=== PATIENT | male | born 1935 | race Hispanic/Latino ===

== ENCOUNTER → 2019-07-10 | Outpatient (CLI) | payer OTHER | END | disposition home or self-care (01) | LOC: RAH 07:33 | PROVIDERS: ATTEND Internal Medicine Gastroenterology | DX: K76.0 Fatty (change of) liver, not elsewhere classified (principal); N28.1 Cyst of kidney, acquired | CPT/HCPCS: 76700 ==

== ENCOUNTER 2019-07-20 19:19 | Inpatient (IN) | payer OTHER ==
[~2019-07-20] VITALS: Ht 170.2 cm; Wt 82.9 kg
[2019-07-20 20:05] LABS: BASOPHILS % (AUTO) 0.2 % (0.0-5.0); EOSINOPHILS % (AUTO) 0.4 % (0.0-8.0); MEAN CORPUSCULAR HEMOGLOBIN 43.2 pg (27.0-33.0); MEAN CORPUSCULAR HGB CONC 36.3 g/dL (32.0-36.0); MEAN CORPUSCULAR VOLUME 118.9 fL (79-99); MONOCYTES % (AUTO) 4.8 % (3.0-13.0); NEUTROPHILS % (AUTO) 79.4 % (40.0-77.0); NUCLEATED RED BLOOD CELLS 0.5 % (0.0-0.19); PLATELET COUNT (AUTO) 201 K/uL (130-400); RED BLOOD CELL COUNT(AUTO) 2.27 MIL/uL (4.50-6.20); RED CELL DISTRIBUTION WIDTH 14.6 % (11.0-15.5); WHITE BLOOD COUNT (AUTO) 5.6 K/uL (4.8-10.8)
[2019-07-20 20:21] LABS: CARBON DIOXIDE 28 mmol/L (21-32); CHLORIDE 101 mmol/L (101-111); CREATININE 1.1 mg/dL (0.5-1.5); GLOMERULAR FILTR. RATE CALC 68 mL/min (>60); GLUCOSE,RANDOM 132 mg/dL (70-105); POTASSIUM 3.4 mmol/L (3.5-5.1); SODIUM SERUM 139 mmol/L (136-145); UREA NITROGEN, BLOOD 21 mg/dL (7-18)
[2019-07-20 20:26] LABS: INR 1.07 (0.85-1.15); PARTIAL THROMBOPLASTIN TIME 24.5 SEC (26.3-35.5); PROTHROMBIN TIME 11.5 SEC (9.6-11.6)
[2019-07-20 20:30] LABS: ALANINE AMINOTRANSFERASE 12 U/L (12-78); ALBUMIN 3.6 g/dL (3.5-5.0); ASPARTATE AMINOTRANSFERASE 20 U/L (10-37); BILIRUBIN,TOTAL 4.3 mg/dL (0.2-1.0); CREATINE KINASE, TOTAL 33 U/L (21-232); TOTAL PROTEIN, SERUM 6.5 g/dL (6.0-8.3)
[2019-07-20 20:32] LABS: B-TYPE NATRIURETIC PEPTIDE 36 pg/mL (0-100)
[2019-07-20 20:49] LABS: LIPASE < 50 U/L (114-286)
[2019-07-20] MEDS ORDERED: ACETAMINOPHEN 325 MG TAB PO PRN ×2 (22:45)
[2019-07-20 23:09] VITALS: BP 104/74
[2019-07-20] MEDS ORDERED: LACTATED RINGERS 1000ML 1,000 ML IV ONE (23:14)
[2019-07-20] MEDS: LACTATED RINGERS 1000ML 1,000 ML IV SCH (23:23)
[2019-07-20] MEDS: POTASSIUM CHLORIDE 20 MEQ ERTAB PO PRN (23:40)
[2019-07-21] VITALS (7 sets, daily range): BP systolic 114–149; BP diastolic 55–85
[2019-07-21] MEDS: POTASSIUM CHLORIDE 20 MEQ ERTAB PO PRN (02:47)
[2019-07-21 03:02] LABS: APPEARANCE,URINE Clear (CLEAR); BILIRUBIN,URINE Negative (NEGATIVE); GLUCOSE, URINE (UA) Negative (NEGATIVE); KETONES,URINE 15 mg/dL (NEGATIVE); LEUKOCYTE ESTERASE ,URINE Trace (NEGATIVE); NITRATE,URINE Negative (NEGATIVE); OCCULT BLOOD,URINE Negative (NEGATIVE); PROTEIN,URINE Negative (NEGATIVE)
[2019-07-21 03:41] LABS: COLOR,URINE YELLOW (YELLOW)
[2019-07-21 04:16] LABS: BACTERIA,URINE Rare /HPF (None Seen); MUCUS,URINE Few LPF (None Seen); RBC,URINE None Seen /HPF (0-1)
[2019-07-21 05:21] LABS: BASOPHILS % (AUTO) 0.2 % (0.0-5.0); EOSINOPHILS % (AUTO) 0.8 % (0.0-8.0); LYMPHOCYTES % (AUTO) 37.7 % (21.0-51.0); MEAN CORPUSCULAR HGB CONC 36.5 g/dL (32.0-36.0); MEAN CORPUSCULAR VOLUME 120.4 fL (79-99); MONOCYTES % (AUTO) 4.8 % (3.0-13.0); NEUTROPHILS % (AUTO) 56.5 % (40.0-77.0); PLATELET COUNT (AUTO) 163 K/uL (130-400); RED BLOOD CELL COUNT(AUTO) 1.91 MIL/uL (4.50-6.20); RED CELL DISTRIBUTION WIDTH 14.5 % (11.0-15.5)
[2019-07-21 05:36] LABS: ALANINE AMINOTRANSFERASE 10 U/L (12-78); ALBUMIN 3.1 g/dL (3.5-5.0); ASPARTATE AMINOTRANSFERASE 16 U/L (10-37); BILIRUBIN,DIRECT 0.5 mg/dL (0.0-0.3); BILIRUBIN,TOTAL 3.6 mg/dL (0.2-1.0); CARBON DIOXIDE 31 mmol/L (21-32); CHLORIDE 105 mmol/L (101-111); CHOLESTEROL 109 mg/dL (<200); CREATININE 0.7 mg/dL (0.5-1.5); GLOMERULAR FILTR. RATE CALC 115 mL/min (>60); GLUCOSE,RANDOM 101 mg/dL (70-105); HDL CHOLESTEROL 41 mg/dL (29-71); LDL DIRECT 69 mg/dL (0-99); POTASSIUM 3.9 mmol/L (3.5-5.1); SODIUM SERUM 140 mmol/L (136-145); TOTAL PROTEIN, SERUM 5.8 g/dL (6.0-8.3); TRIGLYCERIDES 60 mg/dL (30-200); UREA NITROGEN, BLOOD 18 mg/dL (7-18)
[2019-07-21] MEDS: FAMOTIDINE/PF 20 MG/2 ML VIAL IV SCH ×2 (09:30→20:40)
[2019-07-21] MEDS: PNEUMOCOCCAL VACCINE POLYVALENT 0.5 ML/VIAL [PPV] IM SCH (09:49)
[2019-07-21] MEDS: LACTATED RINGERS 1000ML 1,000 ML IV SCH (12:41)
[2019-07-21] MEDS ORDERED: ONDANSETRON HCL 4 MG/2 ML VIAL ONE (14:19)
[2019-07-21] MEDS ORDERED: ONDANSETRON HCL 4 MG/2 ML VIAL IVP PRN (14:30)
--- NOTE | 2019-07-21 16:41 | NUR ---
INITIAL: Met w pt this afternoon to discuss dcp. Pt mentions that he lives w dtr Daniella. HE is currently complaining of nausea and requesting that CM speak w dtr Daniella. Call placed to Daniella to discuss dcp. Per Daniella, prior to admission pt was living w her. He uses crutches to ambulation but has a rollator and standard walker avail if needed Pt requires assistance w ADLs and has grab bars set up in BR. Per Daniella dcp is for pt to return home. CM to continue to follow and wait for Md recommendations. Addendum: 07/21/19 at 1644 by CHUY DOSHI Amended: Links added.
[2019-07-21] MEDS ORDERED: COMPOUND IV MISC 1 EACH IVSOLN MISC PRN (18:00)
[2019-07-21] MEDS ORDERED: GADODIAMIDE 10 MMOL/20 ML VIAL IV ONE (19:01)
[2019-07-21] MEDS: LEVETIRACETAM 500 MG in SODIUM CHLORIDE 0.9% 100 ML IV SCH (20:40)
--- NOTE | 2019-07-21 21:30 | NUR ---
MRI RADIOLOGY TO RADIOLOGY VIA BED FOR MRI HEAD ORDERED
--- NOTE | 2019-07-21 21:45 | NUR ---
MRI CX UNABLE TO PERFORM MRI HEAD PER CUSTOMS EXAMINER UNABLE TO PERFORM MRI OF HEAD BECAUSE PATIENT HAS SMALL METAL IN LEFT EYE FROM WELDING INJURY YEARS AGO
--- NOTE | 2019-07-21 22:52 | NUR ---
MRI HOSPITALIST ELECTRICIAN CHIEF JANEL OLIVER INFORMED UNABLE TO PERFORM MRI HEAD , SECONDARY TO METAL OBJECT IN THE LEFT EYE
[2019-07-22 04:00] VITALS: BP 117/66
[2019-07-22] MEDS: LACTATED RINGERS 1000ML 1,000 ML IV SCH ×2 (04:19→14:45)
[2019-07-22 05:19] LABS: MEAN CORPUSCULAR HEMOGLOBIN 42.3 pg (27.0-33.0); MEAN CORPUSCULAR HGB CONC 35.7 g/dL (32.0-36.0); MEAN CORPUSCULAR VOLUME 118.6 fL (79-99); PLATELET COUNT (AUTO) 151 K/uL (130-400); RED BLOOD CELL COUNT(AUTO) 1.94 MIL/uL (4.50-6.20); RED CELL DISTRIBUTION WIDTH 14.6 % (11.0-15.5); WHITE BLOOD COUNT (AUTO) 4.3 K/uL (4.8-10.8)
[2019-07-22 05:31] LABS: CREATININE 0.7 mg/dL (0.5-1.5); POTASSIUM 3.5 mmol/L (3.5-5.1)
[2019-07-22 05:44] LABS: LYMPHOCYTES % (MANUAL) 32 % (22-44); MAN.DIFF COMMENT-IMPRESSION MANUAL DIFFERENTIAL; MONOCYTES % (MANUAL) 4 % (2-9); PLATELET MORPHOLOGY COMMENT ADEQUATE; SEGMENTED NEUTROPHILS % 64 % (40-70)
[2019-07-22] MEDS: PNEUMOCOCCAL VACCINE POLYVALENT 0.5 ML/VIAL [PPV] IM SCH (08:00)
[2019-07-22] MEDS: LEVETIRACETAM 500 MG in SODIUM CHLORIDE 0.9% 100 ML IV SCH ×2 (08:52→19:35)
[2019-07-22] MEDS: FAMOTIDINE/PF 20 MG/2 ML VIAL IV SCH ×2 (08:52→19:35)
[2019-07-22 11:19] VITALS: BP 120/65
[2019-07-22] MEDS: LACTULOSE 20 GM/30 ML UDCUP PO SCH ×3 (11:25→16:45)
[2019-07-22] MEDS ORDERED: MAGNESIUM CITRATE 296 ML SOLUTION PO SCH (15:30)
[2019-07-22] MEDS ORDERED: PEG 3350/NA SULF,BICARB,CL/KCL 4000 ML SOLN PO SCH (16:30)
--- NOTE | 2019-07-22 16:30 | NUR ---
STARTED GOLYTELY. ENCOURAGED PATIENT TO KEEP DRINKING SMALL SIPS EVERY 10 MINUTES OR SO. PATIENT VERBALIZED UNDERSTANDING.
[2019-07-22 16:36] VITALS: BP 114/63
[2019-07-22 19:35] VITALS: BP 127/59
--- NOTE | 2019-07-22 21:00 | NUR ---
enema TAB WATER ENEMA GIVEN AND TOLERATED WELL.
[2019-07-22 23:46] VITALS: BP 124/54
[2019-07-23] VITALS (19 sets, daily range): BP systolic 99–146; BP diastolic 48–79
[2019-07-23] MEDS: LACTATED RINGERS 1000ML 1,000 ML IV SCH ×2 (03:42→19:51)
--- NOTE | 2019-07-23 05:00 | NUR ---
ENEMA TAB WATER ENEMA GIVEN AND TOLERATED WELL. PATIENT IS CLEAN .
[2019-07-23 05:20] LABS: BASOPHILS % (AUTO) 0.5 % (0.0-5.0); EOSINOPHILS % (AUTO) 3.2 % (0.0-8.0); HEMATOCRIT 24.1 % (42-54); LYMPHOCYTES % (AUTO) 37.4 % (21.0-51.0); MEAN CORPUSCULAR HEMOGLOBIN 42.9 pg (27.0-33.0); MEAN CORPUSCULAR HGB CONC 35.3 g/dL (32.0-36.0); MEAN CORPUSCULAR VOLUME 121.7 fL (79-99); MONOCYTES % (AUTO) 5.4 % (3.0-13.0); NEUTROPHILS % (AUTO) 53.3 % (40.0-77.0); PLATELET COUNT (AUTO) 150 K/uL (130-400); RED BLOOD CELL COUNT(AUTO) 1.98 MIL/uL (4.50-6.20); RED CELL DISTRIBUTION WIDTH 14.5 % (11.0-15.5); WHITE BLOOD COUNT (AUTO) 4.1 K/uL (4.8-10.8)
[2019-07-23 05:34] LABS: % IRON SATURATION 81.5 % (30-44); INR 1.06 (0.85-1.15); PARTIAL THROMBOPLASTIN TIME 27.9 SEC (26.3-35.5); PROTHROMBIN TIME 11.4 SEC (9.6-11.6)
[2019-07-23 05:35] LABS: CREATININE 0.7 mg/dL (0.5-1.5)
[2019-07-23] MEDS: POTASSIUM CHLORIDE 20MEQ/100ML 100 ML IV PRN ×2 (05:52→10:58)
[2019-07-23] MEDS: LACTULOSE 20 GM/30 ML UDCUP PO SCH ×3 (07:45)
[2019-07-23] MEDS: PNEUMOCOCCAL VACCINE POLYVALENT 0.5 ML/VIAL [PPV] IM SCH (07:46)
[2019-07-23] MEDS: FAMOTIDINE/PF 20 MG/2 ML VIAL IV SCH ×2 (10:57→19:50)
[2019-07-23] MEDS: CYANOCOBALAMIN (VITAMIN B-12) 1000 MCG/ML 1ML VIAL IM SCH (10:57)
[2019-07-23] MEDS: LEVETIRACETAM 500 MG in SODIUM CHLORIDE 0.9% 100 ML IV SCH ×2 (10:57→19:50)
[2019-07-23] MEDS: LIDOCAINE HCL-MPF 1% 2ML VIAL IV PRN (11:11)
[2019-07-23] MEDS ORDERED: IOHEXOL-350 50ML VIAL IV ONE (12:19)
[2019-07-23] MEDS ORDERED: PROPOFOL 10 MG/ML 20ML VIAL IV ONE (13:19)
[2019-07-23] MEDS ORDERED: EPHEDRINE SULFATE 50 MG/ML AMPULE ONE (13:41)
--- NOTE | 2019-07-23 14:40 | NUR ---
RECEIVED PT BACK FROM COLONOSCOPY, NO C/O PAIN, [id number]
--- NOTE | 2019-07-23 15:05 | NUR ---
I HAVE SENT DR JACKSON THE RESULTS OF CT OF HEAD AND NECK, --NO ACUTE CHANGES---. SCHEDULING EGD FOR TOMORROW AM.
--- NOTE | 2019-07-23 15:56 | NUR ---
CHART REVIEWED, DISCUSSION WITH TIM, DAUGHTER. WANTED TO KNOW IF STUDIES WERE GOING TO BE DONE. ADVISED THIS CM THAT THE PATIENT HAS HAD MRIS DONE BEFORE. CM STATES THAT IMAGING WAS GOING TO BE DONE BEFORE EGD. ADVISED RN THAT THE MD NOTE IN THE CHART SAYING THE MRI COULD NOT BE DONE WAS INCORRECT- FAMILY STATES PATIENT HAD HAD MRI DONE BEFORE. RN STATES PATIENT ALREADY HAD CT SCAN THIS AM, UNLIKELY TO NEED MRI NOW. EGD STILL PENDING Addendum: 07/23/19 at 1601 by LEVI KAUFMAN RN CM Amended: Links added.
[2019-07-23] MEDS: MAGNESIUM 2GM PREMIX 50ML 50 ML IV PRN (17:06)
[2019-07-23 19:40] LABS: MAGNESIUM 2.3 mg/dL (1.80-2.40); POTASSIUM 3.2 mmol/L (3.5-5.1)
[2019-07-23] MEDS: HYDROCORTISONE 25 MG SUPPOSITORY PR SCH (19:50)
[2019-07-23] MEDS: POTASSIUM CHLORIDE 10% ELIXIR 20 MEQ/15 ML UDCUP PO PRN ×2 (21:13→23:31)
[2019-07-24] VITALS (23 sets, daily range): BP systolic 94–147; BP diastolic 61–92
[2019-07-24 05:08] LABS: BASOPHILS % (AUTO) 0.2 % (0.0-5.0); EOSINOPHILS % (AUTO) 2.1 % (0.0-8.0); HEMATOCRIT 22.1 % (42-54); LYMPHOCYTES % (AUTO) 26.6 % (21.0-51.0); MEAN CORPUSCULAR HEMOGLOBIN 43.2 pg (27.0-33.0); MEAN CORPUSCULAR HGB CONC 35.7 g/dL (32.0-36.0); MEAN CORPUSCULAR VOLUME 120.8 fL (79-99); MONOCYTES % (AUTO) 5.2 % (3.0-13.0); NEUTROPHILS % (AUTO) 65.7 % (40.0-77.0); PLATELET COUNT (AUTO) 141 K/uL (130-400); RED BLOOD CELL COUNT(AUTO) 1.83 MIL/uL (4.50-6.20); RED CELL DISTRIBUTION WIDTH 14.4 % (11.0-15.5); WHITE BLOOD COUNT (AUTO) 4.7 K/uL (4.8-10.8)
[2019-07-24 05:19] LABS: CREATININE 0.6 mg/dL (0.5-1.5); POTASSIUM 3.3 mmol/L (3.5-5.1)
[2019-07-24] MEDS: POTASSIUM CHLORIDE 20MEQ/100ML 100 ML IV PRN ×2 (06:16→10:24)
[2019-07-24] MEDS: LACTATED RINGERS 1000ML 1,000 ML IV SCH ×2 (06:28→20:54)
[2019-07-24] MEDS: MULTIVITAMIN TABLET PO SCH (09:00)
[2019-07-24] MEDS: FAMOTIDINE/PF 20 MG/2 ML VIAL IV SCH ×2 (09:03→20:53)
[2019-07-24] MEDS: HYDROCORTISONE 25 MG SUPPOSITORY PR SCH ×2 (09:03→20:53)
[2019-07-24] MEDS: LEVETIRACETAM 500 MG in SODIUM CHLORIDE 0.9% 100 ML IV SCH ×2 (09:08→20:53)
[2019-07-24] MEDS: CYANOCOBALAMIN (VITAMIN B-12) 1000 MCG/ML 1ML VIAL IM SCH (10:24)
[2019-07-24] MEDS: LIDOCAINE HCL-MPF 1% 2ML VIAL IV PRN (10:29)
[2019-07-24] MEDS ORDERED: PROPOFOL 10 MG/ML 20ML VIAL IV ONE ×2 (13:28)
[2019-07-25] VITALS (20 sets, daily range): BP systolic 109–150; BP diastolic 57–89
[2019-07-25 05:02] LABS: BASOPHILS % (AUTO) 0.5 % (0.0-5.0); EOSINOPHILS % (AUTO) 5.6 % (0.0-8.0); HEMATOCRIT 22.5 % (42-54); LYMPHOCYTES % (AUTO) 40.7 % (21.0-51.0); MEAN CORPUSCULAR HEMOGLOBIN 42.7 pg (27.0-33.0); MEAN CORPUSCULAR HGB CONC 35.1 g/dL (32.0-36.0); MEAN CORPUSCULAR VOLUME 121.6 fL (79-99); MONOCYTES % (AUTO) 5.6 % (3.0-13.0); NEUTROPHILS % (AUTO) 47.3 % (40.0-77.0); PLATELET COUNT (AUTO) 133 K/uL (130-400); RED BLOOD CELL COUNT(AUTO) 1.85 MIL/uL (4.50-6.20); RED CELL DISTRIBUTION WIDTH 13.9 % (11.0-15.5); WHITE BLOOD COUNT (AUTO) 3.8 K/uL (4.8-10.8)
[2019-07-25 05:18] LABS: ALBUMIN 2.7 g/dL (3.5-5.0); BILIRUBIN,DIRECT 0.5 mg/dL (0.0-0.3); BILIRUBIN,TOTAL 2.1 mg/dL (0.2-1.0); CREATININE 0.6 mg/dL (0.5-1.5); POTASSIUM 4.2 mmol/L (3.5-5.1); TOTAL PROTEIN, SERUM 5.3 g/dL (6.0-8.3)
[2019-07-25] MEDS: HYDROCORTISONE 25 MG SUPPOSITORY PR SCH ×2 (08:42→20:18)
[2019-07-25] MEDS: FAMOTIDINE/PF 20 MG/2 ML VIAL IV SCH ×2 (08:43→20:18)
[2019-07-25] MEDS: MULTIVITAMIN TABLET PO SCH (08:45)
[2019-07-25] MEDS: CYANOCOBALAMIN (VITAMIN B-12) 1000 MCG/ML 1ML VIAL IM SCH (08:45)
[2019-07-25] MEDS: LEVETIRACETAM 500 MG in SODIUM CHLORIDE 0.9% 100 ML IV SCH ×2 (08:45→20:17)
[2019-07-25] MEDS: LACTATED RINGERS 1000ML 1,000 ML IV SCH ×2 (08:46→22:45)
--- NOTE | 2019-07-25 13:06 | NUR ---
PLAN OF CARE DISCUSSED W AND LITO CORRALES DC IN AM, PT STATES GOOD TRANSFER MOBILITY Addendum: 07/25/19 at 1306 by LEVI KAUFMAN RN CM Amended: Links added.
--- NOTE | 2019-07-25 13:50 | NUR ---
TO GI LAB PATIENT IS BEING TRANSFERRED TO GI LAB FOR PUSH ENTEROSCOPY. HE IS IN STABLE CONDITION.
[2019-07-25] MEDS ORDERED: PROPOFOL 10 MG/ML 20ML VIAL IV ONE (14:10)
[2019-07-25] MEDS ORDERED: LIDOCAINE HCL 1% 20 ML VIAL ONE (14:11)
[2019-07-26] VITALS (8 sets, daily range): BP systolic 105–149; BP diastolic 64–77
[2019-07-26 05:55] LABS: BASOPHILS % (AUTO) 0.5 % (0.0-5.0); EOSINOPHILS % (AUTO) 6.3 % (0.0-8.0); HEMATOCRIT 23.1 % (42-54); LYMPHOCYTES % (AUTO) 33.8 % (21.0-51.0); MEAN CORPUSCULAR HEMOGLOBIN 44.2 pg (27.0-33.0); MEAN CORPUSCULAR HGB CONC 36.4 g/dL (32.0-36.0); MEAN CORPUSCULAR VOLUME 121.6 fL (79-99); MONOCYTES % (AUTO) 7.9 % (3.0-13.0); NEUTROPHILS % (AUTO) 51.2 % (40.0-77.0); PLATELET COUNT (AUTO) 135 K/uL (130-400); RED CELL DISTRIBUTION WIDTH 13.6 % (11.0-15.5); WHITE BLOOD COUNT (AUTO) 3.8 K/uL (4.8-10.8)
[2019-07-26 06:11] LABS: ALBUMIN 2.7 g/dL (3.5-5.0); BILIRUBIN,TOTAL 2.1 mg/dL (0.2-1.0); CREATININE 0.7 mg/dL (0.5-1.5); MAGNESIUM 1.8 mg/dL (1.80-2.40); POTASSIUM 3.4 mmol/L (3.5-5.1); TOTAL PROTEIN, SERUM 5.3 g/dL (6.0-8.3)
[2019-07-26 06:21] LABS: B-TYPE NATRIURETIC PEPTIDE 52 pg/mL (0-100)
[2019-07-26] MEDS: MAGNESIUM 2GM PREMIX 50ML 50 ML IV PRN (06:46)
[2019-07-26] MEDS: POTASSIUM CHLORIDE 20 MEQ ERTAB PO PRN ×2 (06:46→20:01)
[2019-07-26] MEDS: MULTIVITAMIN TABLET PO SCH (09:31)
[2019-07-26] MEDS: CYANOCOBALAMIN (VITAMIN B-12) 1000 MCG/ML 1ML VIAL IM SCH (09:32)
[2019-07-26] MEDS: LEVETIRACETAM 500 MG in SODIUM CHLORIDE 0.9% 100 ML IV SCH (09:32)
[2019-07-26] MEDS: FAMOTIDINE/PF 20 MG/2 ML VIAL IV SCH ×2 (09:32→20:01)
[2019-07-26] MEDS: HYDROCORTISONE 25 MG SUPPOSITORY PR SCH ×2 (09:33→20:01)
[2019-07-26] MEDS ORDERED: LACTATED RINGERS 1000ML 1,000 ML IV SCH (15:30)
--- NOTE | 2019-07-26 15:37 | NUR ---
RD SCREEN - LOS X 6 RD admitted with near syncope, dehydration. S/p EGD, s/p colonoscopy. Diet advanced to GI Soft/[place]. Pt with chronic diarrhea as per EMR. Recommend 60mL ProMod BID Glucerna BID RD to continue to monitor. Please notify JUSTINE as additional nutrition concerns arise. Thank you. Addendum: 07/26/19 at [address] Amended: Links added.
[2019-07-26] MEDS: LEVETIRACETAM 500 MG TABLET PO SCH (20:01)
[2019-07-26] MEDS: HONEY 1 APPL/ML TUBE TP SCH (20:02)
[2019-07-27 03:41] VITALS: BP 146/74
[2019-07-27 05:56] LABS: HEMATOCRIT 25.3 % (42-54); MEAN CORPUSCULAR HEMOGLOBIN 44.4 pg (27.0-33.0); MEAN CORPUSCULAR HGB CONC 36.4 g/dL (32.0-36.0); MEAN CORPUSCULAR VOLUME 122.2 fL (79-99); RED BLOOD CELL COUNT(AUTO) 2.07 MIL/uL (4.50-6.20); RED CELL DISTRIBUTION WIDTH 14.3 % (11.0-15.5)
[2019-07-27 06:34] LABS: CREATININE 0.6 mg/dL (0.5-1.5); MAGNESIUM 2.2 mg/dL (1.80-2.40); POTASSIUM 4.3 mmol/L (3.5-5.1)
[2019-07-27 07:30] VITALS: BP 134/87
[2019-07-27] MEDS: LEVETIRACETAM 500 MG TABLET PO SCH (08:34)
[2019-07-27] MEDS: FAMOTIDINE/PF 20 MG/2 ML VIAL IV SCH (08:34)
[2019-07-27] MEDS: MULTIVITAMIN TABLET PO SCH (08:34)
[2019-07-27] MEDS: HYDROCORTISONE 25 MG SUPPOSITORY PR SCH (08:35)
[2019-07-27] MEDS: HONEY 1 APPL/ML TUBE TP SCH (08:35)
[2019-07-27] MEDS: CYANOCOBALAMIN (VITAMIN B-12) 1000 MCG/ML 1ML VIAL IM SCH (08:52)
[2019-07-27] MEDS ORDERED: LEVE-43 PO (12:23)
[2019-07-27] MEDS ORDERED: HYDR25SU11 PR (12:23)
[2019-07-27] MEDS ORDERED: CYAN200018 PO (12:23)
[2019-07-27] MEDS ORDERED: MVIT PO (12:23)
--- NOTE | 2019-07-27 16:51 | NUR ---
[facility] consult Patient assessed as ordered. Wound care recommendation submitted per protocol. Addendum: 07/27/19 at 1652 by GREGORIO WATKINS RN/DRAKE Amended: Links added.
--- NOTE | 2019-07-27 17:10 | NUR ---
INSTRUCTIONS DISCHARGE INSTRUCTIONS GIVEN TO PATIENT IN THE ROOM AND TO HIS DAUGHTER VIA TELEPHONE. NO QUESTIONS OR CONCERNS VOICED. F/U APPOINTMENT WITH HIS PRIMARY MD WAS MADE. F/U APPOINTMENTS WITH DR. KU AND DR. JACKSON WILL BE MADE BY FAMILY DURING REGULAR BUSINESS HOURS ON TUESDAY. PHONE NUMBERS WERE PROVIDED. NEW PRESCRIPTIONS WERE ELECTRONICALLY SENT TO PATIENT'S PREFERRED PHARMACY. IV WAS REMOVED WITH TIP INTACT. DIRECT PRESSURE WAS APPLIED UNTIL HEMOSTASIS WAS ACHIEVED THEN SITE WAS COVERED WITH GAUZE AND SECURED WITH TAPE.
== END 2019-07-27 17:40 | disposition home or self-care (01) | DRG 394 ==
LOC: EDH 19:19 → EDHIP 22:32 → 3CH 23:12 → 3DH 07-21 18:08
PROVIDERS: ADMIT Family Medicine; ATTEND Family Medicine
PROC: 0DBK8ZZ Excision of Ascending Colon, Via Natural or Artificial Opening Endoscopic (ICD-10-PCS; 2019-07-23)
PROC: 0DBH8ZZ Excision of Cecum, Via Natural or Artificial Opening Endoscopic (ICD-10-PCS; 2019-07-23)
PROC: 0DJ08ZZ Inspection of Upper Intestinal Tract, Via Natural or Artificial Opening Endoscopic (ICD-10-PCS; principal; 2019-07-25)
PROC: 0DJD8ZZ Inspection of Lower Intestinal Tract, Via Natural or Artificial Opening Endoscopic (ICD-10-PCS; 2019-07-25)
DX: K63.5 Polyp of colon (principal); E87.2 Acidosis; D62 Acute posthemorrhagic anemia; K57.30 Diverticulosis of large intestine without perforation or abscess without bleeding; R56.9 Unspecified convulsions; K52.9 Noninfective gastroenteritis and colitis, unspecified; E86.0 Dehydration; D53.9 Nutritional anemia, unspecified; E53.8 Deficiency of other specified B group vitamins; E87.6 Hypokalemia; R54 Age-related physical debility; M21.371 Foot drop, right foot; M48.02 Spinal stenosis, cervical region; E80.6 Other disorders of bilirubin metabolism; I10 Essential (primary) hypertension; K21.0 Gastro-esophageal reflux disease with esophagitis; K29.00 Acute gastritis without bleeding; T18.2XXA Foreign body in stomach, initial encounter; R19.5 Other fecal abnormalities; K63.89 Other specified diseases of intestine; K64.0 First degree hemorrhoids; R93.3 Abnormal findings on diagnostic imaging of other parts of digestive tract; Z85.048 Personal history of other malignant neoplasm of rectum, rectosigmoid junction, and anus; Z85.038 Personal history of other malignant neoplasm of large intestine; Z87.891 Personal history of nicotine dependence; Z90.49 Acquired absence of other specified parts of digestive tract; Z85.00 Personal history of malignant neoplasm of unspecified digestive organ
CPT/HCPCS: 36415; 43235; 44361; 45380; 45385; 70450; 70460; 71045; 72125; 74176; 80048; 80053; 80061; 80076; 81001; 82247; 82248; 82270; 82550; 82607; 82746; 83540; 83550; 83605; 83630; 83690; 83735; 83880; 84132; 84145; 84484; 85025; 85027; 85610; 85730; 86255; 86340; 86677; 87040; 87046; 87177; 87324; 87804; 88305; 90732; 93005; 93880; 95819; 97039; A4606; A9579; G0378; J1953; J2405; J2704; J3420; J3475; J3480; J3490; J7030; J7120; Q9967